=== PATIENT | female | born 1970 | race African-American/Black ===

== ENCOUNTER 2019-08-18 08:29 | Emergency (ER) | payer OTHER ==
[~2019-08-18] VITALS: Ht 160 cm; Wt 68.0 kg
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
--- NOTE | 2019-08-18 08:40 | NUR ---
BROUGHT BACK TO BED #3, CAREGIVER WITH PT.
--- NOTE | 2019-08-18 08:45 | NUR ---
Pt bib partner with c/o anxiety and stress. Reports pt has not been sleeping and seems confused about time and date. Denies any trauma. V/S stable, pt is afebrile. Currently resting in bed, will continue to monitor.
--- NOTE | 2019-08-18 08:50 | NUR ---
ER Dr. Norman at bedside examining patient.
[2019-08-18 08:52] VITALS: BP_SYST 182
--- NOTE | 2019-08-18 08:55 | NUR ---
Lab at bedside to draw blood
[2019-08-18] MEDS ORDERED: LORazepam 1 MG TABLET PO ONE (09:00)
--- NOTE | 2019-08-18 09:08 | NUR ---
Ativan given PO as ordered
[2019-08-18 09:17] LABS: BASOPHILS % (AUTO) 0.6 % (0.0-2.0); HEMATOCRIT 41.3 % (36-48); HEMOGLOBIN 13.5 g/dL (12.0-16.0); LYMPHOCYTES # (AUTO) 1.8 K/uL (1.0-5.5); MEAN CORPUSCULAR HEMOGLOBIN 27 pg (27-31); MEAN CORPUSCULAR HGB CONC 33 % (32-36); MEAN CORPUSCULAR VOLUME 82 fL (79.0-98.0); MONOCYTES # (AUTO) 0.5 K/uL (0.0-1.0); MONOCYTES % (AUTO) 7.7 % (1.7-9.3); NEUTROPHILS # (AUTO) 4.8 K/uL (1.8-7.7); NEUTROPHILS % (AUTO) 66.7 % (40.0-70.0); PLATELET COUNT (AUTO) 263 K/uL (130-430); RED BLOOD CELL COUNT(AUTO) 5.05 MIL/uL (4.2-6.2); RED CELL DISTRIBUTION WIDTH 16.8 % (9.0-15.0); WHITE BLOOD COUNT (AUTO) 7.1 K/uL (4.8-10.8)
[2019-08-18 09:30] LABS: ANION GAP 6 (5-15); CALCIUM 8.9 mg/dL (8.4-11.0); CHLORIDE 98 mmol/L (98-107); CREATININE 0.88 mg/dL (0.55-1.30); GLUCOSE 117 mg/dL (70-99); POTASSIUM 3.1 mmol/L (3.5-5.1); SODIUM SERUM 134 mmol/L (136-145); UREA NITROGEN, BLOOD 12 mg/dL (8-21)
[2019-08-18 09:34] LABS: ALANINE AMINOTRANSFERASE 26 U/L (12-78); ALBUMIN 4.2 g/dL (3.4-4.8); ASPARTATE AMINOTRANSFERASE 20 U/L (10-37); TOTAL BILIRUBIN 0.5 mg/dL (0.0-1.0)
[2019-08-18 09:50] LABS: ALCOHOL, BLOOD < 3 mg/dL (<10); GFR AFRICAN AMERICAN 88 mL/min (>90)
[2019-08-18] MEDS ORDERED: cloNIDine HCL 0.1 MG TABLET PO ONE (10:15)
--- NOTE | 2019-08-18 11:15 | NUR ---
Patient given written and verbal discharge instructions and verbalizes understanding. ER MD discussed with patient the results and treatment provided. Patient in stable condition. ID arm band removed. Rx of Ativan given. Patient educated on pain management and to follow up with PMD. Pain Scale 0. Opportunity for questions provided and answered. Medication side effect fact sheet provided.
[2019-08-18 11:19] VITALS: BP_SYST 124
== END 2019-08-18 11:15 | disposition home or self-care (01) ==
LOC: SED 08:29
DX: F41.9 Anxiety disorder, unspecified (principal); R45.1 Restlessness and agitation
CPT/HCPCS: 36415; 80053; 85025; 99283; G0482